=== PATIENT | male | born 1960 | race Hispanic/Latino ===

== ENCOUNTER 2018-03-02 15:59 | Emergency (ER) | payer BC ==
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
[2018-03-02 19:14] VITALS: BP 129/81; PULSE 85; RESP 15; TEMP 98; O2SAT 99
== END 2018-03-02 19:15 | disposition home or self-care (01) ==
LOC: H.ER 15:59
DX: F43.22 Adjustment disorder with anxiety (principal); F32.9 Major depressive disorder, single episode, unspecified